=== PATIENT | female | born 2000 | race Caucasian/White ===

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

== ENCOUNTER → 2019-03-16 14:12 | Outpatient (CLI) | payer MEDICAID, SELFPAY ==
[2019-03-16 17:35] LABS: Alanine Aminotransferase 20 U/L (12-78); Albumin Level 3.3 gm/dL (3.4-5.0); Albumin/Globulin Ratio 0.9 (1.1-1.8); Alkaline Phosphatase 238 U/L (46-116); Anion Gap 14.4 mEq/L (5-15); Aspartate Amino Transferase 9 U/L (15-37); Bilirubin,Total 0.5 mg/dL (0.2-1.0); Blood Urea Nitrogen 6 mg/dL (7-18); Calcium 9.1 mg/dL (8.5-10.1); Carbon Dioxide 26 mmol/L (21.0-32.0); Chloride 104 mmol/L (98-107); Creatinine,Serum 0.61 mg/dL (0.55-1.02); Estimated Glomerular Filt Rate 126 ml/min (>60); Free T4 (Free Thyroxine) 1.02 ng/dl (0.78-1.34); GFR (African American) 153 ML/MIN (>60); Globulin 3.5 gm/dl (1.3-3.2); Glucose 86 mg/dL (74-106); Phosphorous 4.1 mg/dL (2.4-4.9); Potassium 4.4 mmoL/L (3.5-5.1); Sodium 140 mmol/L (136-145); Total Protein,Serum 6.8 gm/dL (6.4-8.2)
== END ==
PROVIDERS: Visit Provider Student in an Organized Health Care Education/Training Program
DX: Q78.1 Polyostotic fibrous dysplasia (principal)
CPT/HCPCS: 36415; 80053; 82787; 84100; 84439; 84443

== ENCOUNTER → 2019-04-05 09:51 | Outpatient (CLI) | payer MEDICAID, SELFPAY ==
[2019-04-05 11:25] LABS: Free T4 (Free Thyroxine) 0.76 ng/dl (0.78-1.34); Thyroid Stimulating Hormone 0.55 uIU/ml (0.516-4.13)
[2019-04-06 08:33] LABS: Triiodothyronine (T3) Total 181 ng/dL (71-180)
== END ==
PROVIDERS: Visit Provider Student in an Organized Health Care Education/Training Program
DX: E05.90 Thyrotoxicosis, unspecified without thyrotoxic crisis or storm (principal)
CPT/HCPCS: 36415; 84439; 84443; 84480

== ENCOUNTER 2019-05-19 18:34 | Emergency (ER) | payer MEDICAID, SELFPAY ==
[2019-05-19 18:51] VITALS: BP 137/83; PULSE 68; RESP 18; TEMP 36.8; O2SAT 98; BMI 25.9
--- NOTE | 2019-05-19 19:18 | HMH.EDUTC ---
[facility] [place] Clinical Impression: Migraine Qualifiers: Migraine type: unspecified Status migrainosus presence: without status migrainosus Intractability: not intractable Qualified Code(s): G43.909 - Migraine, unspecified, not intractable, without status migrainosus Disposition: Home, Self-Care Condition on Discharge: Good Instructions: DI for Chronic Pain -- Adult, Migraine -- Adult, Migraine Headaches (Alternative Therapy), Migraine Headaches (Alternative Therapy), DI for Migraine Additional Instructions: Go home lay down and sleep off remainder of headache Take Motrin as prescribed for pain Return if needed Straight to ER if any life threatening symptoms Referrals: Ministerio Poon MD [Primary Care Provider] - As needed Time of Disposition: 19:38 Medical Decision Making - Awais Inquiry Pt receiving controlled substance: No Awais was queried for this patient: No Vital Signs: 05/19/19 18:51 Temperature 98.2 F Temperature Source Oral Pulse Rate [Right Radial] 68 Respiratory Rate 18 Blood Pressure [Right Arm] 137/83 Blood Pressure Mean [Right Arm] 101 Blood Pressure Source [Right Arm] Automatic Cuff Blood Pressure Position [Right Arm] Sitting 02 Sat by Pulse Oximetry 98 Oxygen Delivery Method Room Air - Reevaluation(s) Time: 19:37 Reevaluation #1: Patient state that headache is better after taking medication [facility] [place] - General Stated complaint: reaction to meds given today?? Time Seen by Provider: 05/19/19 19:18 Mode of Arrival: Ambulatory Source of Information: Patient Limitations: No Limitations Description of Symptoms (Recalled from Triage Doc. by RN): C/O MIGRAINE THAT GOT WORSE AFTER TAKING HER SUMATRIPTAN. HEENT Symptoms (Recalled from RN notes): Yes (MIGRAINE) Resp Symptoms (Recalled from RN notes): No Skin Symptoms (Recalled from RN notes): No MS Symptoms (Recalled from RN notes): No Functional Status (Recalled from RN notes): N/A - History of Present Illness Provider Complaint: Patient state that she has a history of migraine headaches State that she seen her family doctor today and was started on medication State that she took her sumatriptan and it hasn't helped State that she took it before when she was younger and it would make her headaches worse. State that she came in to see if there was something she could take to help with her headache until her medication comes in tomorrow - Related Data Home Medications Medication Instructions Recorded Confirmed Pnv No.122/Iron/Folic Acid 1 each PO DAILY 09/16/18 09/16/18 [ Multi Tablet] Allergies Allergy/AdvReac Type Severity Reaction Status Date / Time No Known Allergies Allergy Verified 06/30/18 14:42 - Worker's Comp Is this a Worker's Comp case?: No H History - Hepatitis A Screen Drug use history?: No High risk sexual behaviors?: No History of sexually transmitted infection?: No Currently employed?: No Childcare worker?: No Do you have indoor plumbing?: Yes Do you have electricity?: Yes Attestation statement:: This patient has been screened for Hepatitis A risk factors. 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
--- NOTE | 2019-05-19 19:22 | ED_ITS ---
[facility] [place]ression: Migraine Qualifiers: Migraine type: unspecified Status migrainosus presence: without status migrainosus Intractability: not intractable Qualified Code(s): G43.909 - Migraine, unspecified, not intractable, without status migrainosus Disposition: Home, Self-Care Condition on Discharge: Good Instructions: DI for Chronic Pain -- Adult, Migraine -- Adult, Migraine Headaches (Alternative Therapy), Migraine Headaches (Alternative Therapy), DI for Migraine Additional Instructions: Go home lay down and sleep off remainder of headache Take Motrin as prescribed for pain Return if needed Straight to ER if any life threatening symptoms Referrals: Ministerio Poon MD [Primary Care Provider] - As needed Time of Disposition: 19:38 Medical Decision Making - Awais Inquiry Pt receiving controlled substance: No Awais was queried for this patient: No Vital Signs: 05/19/19 18:51 Temperature 98.2 F Temperature Source Oral Pulse Rate [Right Radial] 68 Respiratory Rate 18 Blood Pressure [Right Arm] 137/83 Blood Pressure Mean [Right Arm] 101 Blood Pressure Source [Right Arm] Automatic Cuff Blood Pressure Position [Right Arm] Sitting 02 Sat by Pulse Oximetry 98 Oxygen Delivery Method Room Air - Reevaluation(s) Time: 19:37 Reevaluation #1: Patient state that headache is better after taking medication [facility] [place] - General Stated complaint: reaction to meds given today?? Time Seen by Provider: 05/19/19 19:18 Mode of Arrival: Ambulatory Source of Information: Patient Limitations: No Limitations Description of Symptoms (Recalled from Triage Doc. by RN): C/O MIGRAINE THAT GOT WORSE AFTER TAKING HER SUMATRIPTAN. HEENT Symptoms (Recalled from RN notes): Yes (MIGRAINE) Resp Symptoms (Recalled from RN notes): No Skin Symptoms (Recalled from RN notes): No MS Symptoms (Recalled from RN notes): No Functional Status (Recalled from RN notes): N/A - History of Present Illness Provider Complaint: Patient state that she has a history of migraine headaches State that she seen her family doctor today and was started on medication State that she took her sumatriptan and it hasn't helped State that she took it before when she was younger and it would make her headaches worse. State that she came in to see if there was something she could take to help with her headache until her medication comes in tomorrow - Related Data Home Medications Medication Instructions Recorded Confirmed Pnv No.122/Iron/Folic Acid 1 each PO DAILY 09/16/18 09/16/18 [ Multi Tablet] Allergies Allergy/AdvReac Type Severity Reaction Status Date / Time No Known Allergies Allergy Verified 06/30/18 14:42 - Worker's Comp Is this a Worker's Comp case?: No H History - Hepatitis A Screen Drug use history?: No High risk sexual behaviors?: No History of sexually transmitted infection?: No Currently employed?: No Childcare worker?: No Do you have indoor plumbing?: Yes Do you have electricity?: Yes Attestation statement:: This patient has been screened for Hepatitis A risk factors. I have reviewed the patient's past medical history: Yes Medical History: Denies:: Cancer, Diabetes Mellitus Type 1, Diabetes Mellitus Type 2, Hyp
[2019-05-19 19:39] VITALS: BP 137/83; PULSE 68; RESP 18; TEMP 36.8; O2SAT 98
== END 2019-05-19 19:42 | disposition home or self-care (01) ==
PROVIDERS: Emergency Provider Nurse Practitioner; PCP Family Medicine
DX: G43.909 Migraine, unspecified, not intractable, without status migrainosus (principal)
CPT/HCPCS: 99201

== ENCOUNTER → 2019-07-22 12:30 | Outpatient (CLI) | payer MEDICAID, SELFPAY ==
[2019-07-22 12:55] LABS: Basophils % 0.2 % (0.1-2.0); Eosinophils # 0.1 K/mm3 (0.0-0.4); Eosinophils % 1.2 % (0.1-12.0); Hemoglobin 13.2 g/dL (12.2-16.2); Lymphocytes % 33.1 % (10-50); Mean Corpuscular HGB Conc 33.1 g/dL (31.8-35.4); Mean Corpuscular Hemoglobin 29.2 pg (27.0-31.2); Mean Corpuscular Volume 88.3 fl (81-99); Mean Platelet Volume 7.2 fl (7.4-10.4); Monocytes # 0.4 K/mm3 (0.1-1.0); Monocytes % 6.6 % (1.7-9.3); Neutrophils # 3.5 K/mm3 (1.8-7.8); Neutrophils % 58.9 % (37.0-80.0); Platelet Count 286 K/mm3 (142-424); Red Blood Count 4.53 M/mm3 (4.20-5.40); Red Cell Distribution Width 13.4 % (11.5-17.5)
[2019-07-22 13:46] LABS: Alanine Aminotransferase 23 U/L (12-78); Albumin Level 3.6 gm/dL (3.4-5.0); Albumin/Globulin Ratio 1.2 (1.1-1.8); Alkaline Phosphatase 180 U/L (46-116); Amylase 27 U/L (25-115); Anion Gap 9.5 mEq/L (5-15); Aspartate Amino Transferase 12 U/L (15-37); Bilirubin,Total 0.6 mg/dL (0.2-1.0); Blood Urea Nitrogen 10 mg/dL (7-18); Calcium 9.2 mg/dL (8.5-10.1); Carbon Dioxide 27 mmol/L (21.0-32.0); Chloride 105 mmol/L (98-107); Creatinine,Serum 0.54 mg/dL (0.55-1.02); Estimated Glomerular Filt Rate 144 ml/min (>60); GFR (African American) 174 ML/MIN (>60); Glucose 79 mg/dL (74-106); HCG,Quantitative 0 mIU/mL; Lipase 110 u/L (73-393); Potassium 4.5 mmoL/L (3.5-5.1); Sodium 137 mmol/L (136-145); Total Protein,Serum 6.6 gm/dL (6.4-8.2)
== END ==
PROVIDERS: Visit Provider Nurse Practitioner Family
DX: R10.0 Acute abdomen (principal); R11.2 Nausea with vomiting, unspecified; N92.6 Irregular menstruation, unspecified
CPT/HCPCS: 36415; 80053; 82150; 83690; 84702; 85025

== ENCOUNTER 2020-09-15 10:30 | Emergency (ER) | payer OTHER, SELFPAY ==
[2020-09-15 10:31] VITALS: BP 121/77; PULSE 83; RESP 19; TEMP 36.9; O2SAT 98; BMI 24.0
--- NOTE | 2020-09-15 10:57 | HMH.EDUTC ---
[facility] [place] Disposition Clinical Impression: UTI (urinary tract infection) Qualifiers: Urinary tract infection type: acute cystitis Hematuria presence: without hematuria Qualified Code(s): N30.00 - Acute cystitis without hematuria Disposition: Home, Self-Care Condition on Discharge: Good Instructions: DI for Urinary Tract Infection (UTI) Additional Instructions: Return to ER if severe pain, fever, vomiting, etc. Complete antibiotics as directed. Urine will be sent for culture. This should be available Friday/Friday. Follow up with CLINICAL OUTCOMES MANAGER. Prescriptions: Sulfamethoxazole/Trimethoprim [Bactrim DS tablet] 1 each PO BID 5 Days #10 tab Transmission Status: Pending to [id number] Referrals: PCP,No [Primary Care Provider] - Time of Disposition: 11:09 Medical Decision Making - Awais Inquiry Pt receiving controlled substance: No - Lab Data Lab results reviewed: Yes: I reviewed the patient's lab results. [facility] [place] HPI - General Stated complaint: Severe pain in ovaries Time Seen by Provider: 09/15/20 10:58 - History of Present Illness Provider Complaint: Right groin pain X several days. Has been getting progressively worse. Had tubal in May with surgery. Has only had one period since then. No fever. Some nausea, no vomiting. Has had burning with urination. No vaginal bleeding. No discharge. Denies concern for STD. Onset (ago): day(s) (3) Location: pelvis Relieving factors: none Exacerbating factors: none Treatments prior to arrival: none - Related Data Home Medications Medication Instructions Recorded Confirmed Medroxyprogesterone Acetate 150 mg IM ONCE 09/10/19 09/10/19 [Depo-Provera 150mg/mL Syringe] Previous Rx's Medication Instructions Recorded Sulfamethoxazole/Trimethoprim 1 each PO BID 5 Days #10 tab 09/15/20 [Bactrim DS tablet] Allergies Allergy/AdvReac Type Severity Reaction Status Date / Time No Known Allergies Allergy Verified 06/30/18 14:42 [facility] History - Hepatitis A Screen Attestation statement:: This patient has been screened for Hepatitis A risk factors. 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) Other Surgeries: Yes: No Previous Surgery Amputation: No Fractures: Yes (ANKLE,FINGERS,FOOT) - Social History Smoking Status: Never smoker Alcohol Intake: never Occupational Status: student ROS Obtained: Yes All systems reviewed & no additional complaints - Genitourinary Female Genitourinary: Reports dysuria, Denies flank pain, Reports pelvic pain, Reports urinary frequency, Denies vaginal discharge Physical Exam - General General appearance: alert, in no apparent distress - Head Head exam: atraumatic, normocephalic, normal inspection - Eye Eye exam: Present: normal appearance, PERRL, EOMI - ENT ENT exam: Present: normal exam, normal oropharynx, mucous membranes moist, TM's normal bilaterally, normal external ear exam - Neck Neck exam: Present: normal inspection, full ROM, trachea midline. Absent: meningismus, lymphadenopathy - Chest Chest inspection: Present: normal inspection, symmetric chest wall rise. Absent: tenderness - Respiratory Respiratory exam: Present: normal lung sounds bilaterally. Absent: respiratory distress - Cardiovascular Cardiovascular exam: Present: regular rate, normal rhythm. Absent: JVD - Abdominal Exam Abdominal exam: Present: soft, normal bowel sounds. Absent: distention, tenderness, guarding Abdominal tenderness: Present: RLQ (tenderness, but no guarding or rigidity), suprapubic - Extremities Exam Extremities exam: Present: normal inspection, full ROM, normal capillary refill. Absent: calf tenderness - Back Exam Back exam: Present: normal inspection. Absent: tenderness - Neurological Exam Neurological exam:
[2020-09-15 11:36] VITALS: BP 121/77; PULSE 83; RESP 19; TEMP 36.9; O2SAT 99
[2020-09-15 14:47] LABS: Color,Urine Yellow (Yellow)
[2020-09-15 14:48] LABS: Apearance,Urine Clear (Clear)
[2020-09-15 14:49] LABS: Bilirubin,Urine Negative (Negative); Blood, Urine Negative (Negative); Glucose,Urine (UA) Negative (Negative); Ketones,Urine Negative (Negative); Protein,Urine Negative (Negative); Specific Gravity, Urine 1.025 (1.005-1.030); UTC Leukocyte Esterase,Urine Trace (Negative); UTC Nitrate,Urine Negative (Negative); UTC Pregnancy Test, Urine Negative (Negative); Urobilinogen,Urine 1 EU/dl (0.2)
== END 2020-09-15 11:37 | disposition home or self-care (01) ==
PROVIDERS: Emergency Provider Physician Assistant
DX: N30.00 Acute cystitis without hematuria (principal)
CPT/HCPCS: 81003; 81025; 87086; 99201

== ENCOUNTER 2021-03-03 19:12 | Emergency (ER) | payer BC, SELFPAY ==
[2021-03-03 19:27] VITALS: BP 146/86; PULSE 78; RESP 20; TEMP 36.6; O2SAT 78; BMI 29.6
--- NOTE | 2021-03-03 19:34 | XR_ITS ---
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 There may be focal involvement of the 8th rib as well with a similar appearance of the 8th rib anteriorly. The clavicle AC joint humeral head and glenoid all appear normal. Similar findings of the left 1st and 2nd and 8th ribs were seen on the previous rib series 09/10/2019. 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 Parveen Hermosillo MD 03/04/2021 08:30 Dr. Parveen Hermosillo MD in [place] 03/04/2021 08:30
--- NOTE | 2021-03-03 19:46 | HMH.EDUTC ---
[facility] [place]ression: Shoulder pain, left Qualifiers: Chronicity: acute Qualified Code(s): M25.512 - Pain in left shoulder Disposition: Home, Self-Care Condition on Discharge: Good Instructions: DI for Shoulder Pain Additional Instructions: tylenol or motrin for pain follow up with pcp for more work up ice 20 min,remove and repeat every hour if worsen return or be seen in ed follow up with ortho Referrals: Ministerio Poon MD [Primary Care Provider] - Raji Kirby MD [Staff Physician] - Time of Disposition: 20:55 Medical Decision Making - Awais Inquiry Pt receiving controlled substance: No Vital Signs: 03/03/21 19:27 Temperature 97.9 F Temperature Source Oral Pulse Rate [Right] 78 Respiratory Rate 20 Blood Pressure [Right Arm] 146/86 H Blood Pressure Mean [Right Arm] 106 02 Sat by Pulse Oximetry 78 L Orders (Tests/Meds): ORDERS Category Date Time Status XR shoulder LT min 2V Stat Exams 03/03/21 19:34 [place] [facility] [place] - General Chief complaint: [facility] Stated complaint: LEFT SHOULDER PAIN Time Seen by Provider: 03/03/21 19:47 Mode of Arrival: Ambulatory Source of Information: Patient Limitations: No Limitations Description of Symptoms (Recalled from Triage Doc. by RN): L shoulder pain. pt was sitting a week ago and suddenly felt her L shoulder pop. its been painful every since. she states this happens frequently and she decided she should get it checked out. HEENT Symptoms (Recalled from RN notes): No Resp Symptoms (Recalled from RN notes): No Skin Symptoms (Recalled from RN notes): No MS Symptoms (Recalled from RN notes): Yes (L shoulder pain) Functional Status (Recalled from RN notes): na - History of Present Illness Provider Complaint: 20 yr old female presents for L shoulder pain. pt was sitting a week ago and suddenly felt her L shoulder pop. its been painful every since. she states this happens frequently and she decided she should get it checked out. limited rom - Related Data Home Medications Medication Instructions Recorded Confirmed Medroxyprogesterone Acetate 150 mg IM ONCE 09/10/19 09/10/19 [Depo-Provera 150mg/mL Syringe] Previous Rx's Medication Instructions Recorded Sulfamethoxazole/Trimethoprim 1 each PO BID 5 Days #10 tab 09/15/20 [Bactrim DS tablet] Allergies Allergy/AdvReac Type Severity Reaction Status Date / Time No Known Allergies Allergy Verified 06/30/18 14:42 - Worker's Comp Is this a Worker's Comp case?: No [facility] History - Hepatitis A Screen Drug use history?: No High risk sexual behaviors?: No History of sexually transmitted infection?: No Currently employed?: No Childcare worker?: No Do you have indoor plumbing?: Yes Do you have electricity?: Yes Attestation statement:: This patient has been screened for Hepatitis A risk factors. 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) Other Surgeries: Yes: No Previous Surgery Amputation: No Fractures: Yes (ANKLE,FINGERS,FOOT) - Social History Smoking Status: Never smoker Alcohol Intake: never Occupational Status: employed ROS Obtained: Yes Systems reviewed as appropriate & no additional complaints - Constitutional Constitutional: Reports system reviewed and no additional complaints, except as docu, Denies chills, Denies fever(s) - Eyes Eyes: Reports system reviewed and no additional complaints, except as docu, Denies blurry vision - ENT Ears, Nose, Mouth, and Throat: Reports system reviewed and no additional complaints, except as docu, Denies dizziness, Denies sore throat - Cardiovascular Cardiovascular: Reports system reviewed and no additional complaints, except as docu, Denies chest pain - Respiratory Respiratory: Reports system reviewed and no a
[2021-03-03 21:08] VITALS: BP 139/82; PULSE 84; RESP 19; TEMP 36.6
== END 2021-03-03 21:14 | disposition home or self-care (01) ==
PROVIDERS: Emergency Provider Nurse Practitioner Family; PCP Family Medicine
DX: M25.512 Pain in left shoulder (principal)
CPT/HCPCS: 73030; 99202; G0463

== ENCOUNTER 2021-03-13 21:24 | Emergency (ER) | payer BC, SELFPAY ==
[2021-03-13 22:31] VITALS: BP 145/85; PULSE 78; RESP 17; TEMP 36.7; O2SAT 100; BMI 26.6
[2021-03-13 22:48] LABS: Microscopic, Urine URINE MICROSCOPIC (MICROSCOPIC)
[2021-03-13 22:51] LABS: Appearance,Urine CLEAR (Clear); Bilirubin,Urine Negative (Negative); Blood, Urine Negative (Negative); Color,Urine YELLOW (Yellow); Glucose,Urine (UA) Negative (Negative); Ketones,Urine Negative (Negative); Leukocyte Esterase,Urine Negative (Negative); Nitrate,Urine Negative (Negative); PH,Urine 6.5 (5.0-8.5); Protein,Urine Negative (Negative); Specific Gravity, Urine 1.025 (1.005-1.030); Urobilinogen,Urine 0.2 EU/dl (0.2)
[2021-03-13 22:53] LABS: Urine Pregnancy, HCG Qual. Negative (Negative)
[2021-03-13 23:03] LABS: Basophils % 0.5 % (0.1-2.0); Eosinophils # 0.2 K/mm3 (0.0-0.4); Eosinophils % 1.8 % (0.1-12.0); Hematocrit 38.1 % (37.0-47.0); Hemoglobin 13.1 g/dL (12.2-16.2); Lymphocytes # 3.1 K/mm3 (0.7-4.5); Lymphocytes % 33.6 % (10-50); Mean Corpuscular HGB Conc 34.4 g/dL (31.8-35.4); Mean Corpuscular Hemoglobin 29.7 pg (27.0-31.2); Mean Corpuscular Volume 86.4 fl (81-99); Mean Platelet Volume 7.5 fl (7.4-10.4); Monocytes # 0.4 K/mm3 (0.1-1.0); Monocytes % 4.6 % (1.7-9.3); Neutrophils # 5.4 K/mm3 (1.8-7.8); Neutrophils % 59.5 % (37.0-80.0); Platelet Count 300 K/mm3 (142-424); Red Blood Count 4.41 M/mm3 (4.20-5.40); White Blood Count 9.1 K/mm3 (4.8-10.8)
[2021-03-13 23:05] LABS: Chloride 102 mmol/L (98-107); Potassium 4.1 mmoL/L (3.5-5.1); Sodium 136 mmol/L (136-145)
[2021-03-13 23:05] LABS: Amorphous Sediment,Urine 1+ /lpf; Bacteria,Urine 1+ /lpf; Mucus,Urine 1+ /lpf
[2021-03-13 23:07] LABS: Amylase 35 U/L (30-110); Blood Urea Nitrogen 12 mg/dl (7-17); Creatinine Clearance Estimated 165 mL/min (50-200); Estimated Glomerular Filt Rate 126 ml/min (>60); GFR (African American) 153 ML/MIN (>60)
[2021-03-13 23:08] LABS: Alanine Aminotransferase 12 U/L (12-78); Albumin Level 4.1 g/dl (3.5-5.0); Alkaline Phosphatase 169 U/L (38-126); Anion Gap 9.1 mEq/L (5-15); Aspartate Amino Transferase 21 U/L (14-36); Bilirubin,Indirect 0.4 mg/dL (0.0-0.9); Bilirubin,Total 0.4 mg/dl (0.2-1.3); Bilirubin,Unconjugated 0.4 mg/dL (0.0-1.1); Calcium 9.4 mg/dl (8.4-10.2); Carbon Dioxide 29 mmol/L (22.0-30.0); Glucose 94 mg/dl (74-100); Lipase 55 U/L (23-300); Total Protein,Serum 7.1 g/dl (6.3-8.2)
--- NOTE | 2021-03-13 23:15 | HMH.EDGENADL ---
ED Disposition Clinical Impression: Left lower quadrant pain Disposition: Home, Self-Care Condition on Discharge: Good Instructions: DI for Acute Abdominal Pain Additional Instructions: Additional instructions for ABDOMINAL PAIN: See your physician as soon as possible for further evaluation. Return immediately if worsening abdominal pain, vomiting, shortness of breath, fever, vomiting of blood or abdominal distention. Referrals: Ministerio Poon MD [Primary Care Provider] - - Critical Care Critical Care Time: No Attestation: On 03/13/21, the high probability of a clinically significant, sudden or life threatening deterioration of the following system(s) required my full and direct attention, intervention and personal management. The time I documented below is in addition to time spent performing reported procedures but includes the following listed in this critical care notation. Medical Decision Making - Awais Inquiry Pt receiving controlled substance: No Vital Signs: 03/13/21 22:31 03/14/21 00:20 Temperature 98.1 F 98.2 F Temperature Source Oral Oral Pulse Rate 73 Pulse Rate [Right Brachial] 78 Respiratory Rate 17 17 Blood Pressure 113/75 Blood Pressure [Right Arm] 145/85 H Blood Pressure Mean [Right Arm] 105 Blood Pressure Source Automatic Cuff Blood Pressure Source [Right Arm] Automatic Cuff Blood Pressure Position Sitting Blood Pressure Position [Right Arm] Sitting 02 Sat by Pulse Oximetry 100 Oxygen Delivery Method Room Air Room Air - Lab Data Lab Results 03/13/21 22:30: Urine Color Yellow, Urine Appearance Clear, Urine pH 6.5, Ur Specific [place] 1.025, Urine Protein Negative, Urine Glucose (UA) Negative, Urine Ketones Negative, Urine Blood Negative, Urine Nitrate Negative, Urine Bilirubin Negative, Urine Urobilinogen 0.2, Ur Leukocyte Esterase Negative, Urine WBC 3-5, Ur Squamous Epith Cells 3-5, Amorphous Sediment 1+, Urine Bacteria 1+, Urine Mucus 1+ 03/13/21 22:30: Urine HCG, Qual Negative 03/13/21 22:45: WBC 9.1, RBC 4.41, Hgb 13.1, Hct 38.1, MCV 86.4, MCH 29.7, MCHC 34.4, RDW 13.0, Plt Count 300, MPV 7.5, Neut % (Auto) 59.5, Lymph % (Auto) 33.6, [place] % (Auto) 4.6, Eos % (Auto) 1.8, Baso % (Auto) 0.5, Neut # (Auto) 5.4, Lymph # (Auto) 3.1, [place] # (Auto) 0.4, Eos # (Auto) 0.2, Baso # (Auto) 0.0 03/13/21 22:45: Sodium 136, Potassium 4.1, Chloride 102, Carbon Dioxide 29, Anion Gap 9.1, BUN 12, Creatinine 0.60, Estimated Creat Clear 165, Estimated GFR 126, Est GFR ( Amer) 153, Glucose 94, Calcium 9.4, Total Bilirubin 0.4, Direct Bilirubin 0.0, Conjugated Bilirubin 0.0, Indirect Bilirubin 0.4, Unconjugated Bilirubin 0.4, AST 21, ALT 12, Alkaline Phosphatase 169 H, Total Protein 7.1, Albumin 4.1, Amylase 35, Lipase 55 03/13/21 22:45: Serum HCG, Qual Negative Result diagrams: 03/13/21 22:45 03/13/21 22:45 Orders (Tests/Meds): ED MEDICATIONS Discontinued Medications Generic Name Dose Route Start Last Admin Trade Name Jovita PRN Reason Stop Dose Admin Butorphanol Tartrate 1 mg 03/13/21 23:32 03/13/21 23:53 Butorphanol Tartrate 1 Mg/Ml Vial IV 03/13/21 23:33 Not Given ONCE ONE Medical Decision Narrative: Urine test negative. She says that Pee tests do not show her pregnancies and therefore she wants a serum test. Discussed further work-up for left lower quadrant pain as this does not appear to be tubal , I do not expect the serum test to show a different result. She says she does not want any other testing done other than what has already been performed. She does not want a CT scan. She just wanted to make sure she did not have a tubal by getting a serum test. General Adult HPI - General Chief complaint: Abdominal Pain Stated complaint: Pain on left side, nausea Time Seen by Provider: 03/13/21 23:15 Mode of Arrival: Family Vehicle Limitations: No Limitations Description of Symptoms (Recalle
[2021-03-13 23:57] LABS: HCG Qualitative, Serum Negative (Negative)
[2021-03-14 00:20] VITALS: BP 113/75; PULSE 73; RESP 17; TEMP 36.8; O2SAT 98
== END 2021-03-14 00:23 | disposition home or self-care (01) ==
PROVIDERS: Emergency Provider Emergency Medicine; PCP Family Medicine
DX: R10.32 Left lower quadrant pain (principal); Z32.02 Encounter for pregnancy test, result negative; Q78.1 Polyostotic fibrous dysplasia
CPT/HCPCS: 80048; 80076; 81001; 81025; 82150; 83690; 84703; 85025; 99282

== ENCOUNTER 2021-05-14 21:18 | Emergency (ER) | payer BC, SELFPAY ==
[2021-05-14 21:34] LABS: Microscopic, Urine URINE MICROSCOPIC (MICROSCOPIC)
[2021-05-14 21:35] VITALS: BP 116/73; PULSE 91; RESP 16; TEMP 36.9; O2SAT 98; BMI 27.4
[2021-05-14 21:36] LABS: Coronavirus 19, PCR Not Detected (NotDetected); Influenza A, PCR Not Detected (NotDetected); Influenza B, PCR Not Detected (NotDetected)
[2021-05-14 21:45] LABS: Appearance,Urine CLEAR (Clear); Bilirubin,Urine Negative (Negative); Blood, Urine 3+ (Negative); Color,Urine YELLOW (Yellow); Glucose,Urine (UA) Negative (Negative); Ketones,Urine Negative (Negative); Leukocyte Esterase,Urine TRACE (Negative); Nitrate,Urine Negative (Negative); PH,Urine 6.5 (5.0-8.5); Protein,Urine 2+ (Negative); Specific Gravity, Urine >= 1.030 (1.005-1.030)
[2021-05-14 21:59] LABS: Basophils % 0.3 % (0.1-2.0); Eosinophils # 0.2 K/mm3 (0.0-0.4); Eosinophils % 3.4 % (0.1-12.0); Hematocrit 36.4 % (37.0-47.0); Hemoglobin 12.9 g/dL (12.2-16.2); Lymphocytes # 2.5 K/mm3 (0.7-4.5); Lymphocytes % 34.9 % (10-50); Mean Corpuscular HGB Conc 35.4 g/dL (31.8-35.4); Mean Corpuscular Hemoglobin 30.7 pg (27.0-31.2); Mean Corpuscular Volume 86.8 fl (81-99); Mean Platelet Volume 7.5 fl (7.4-10.4); Monocytes # 0.2 K/mm3 (0.1-1.0); Monocytes % 3.1 % (1.7-9.3); Neutrophils # 4.1 K/mm3 (1.8-7.8); Neutrophils % 58.2 % (37.0-80.0); Platelet Count 267 K/mm3 (142-424); Red Cell Distribution Width 13.1 % (11.5-17.5)
--- NOTE | 2021-05-14 22:02 | HMH.EDNVD ---
ED Disposition Clinical Impression: UTI (urinary tract infection) Qualifiers: Urinary tract infection type: site unspecified Hematuria presence: without hematuria Qualified Code(s): N39.0 - Urinary tract infection, site not specified Disposition: Home, Self-Care Condition on Discharge: Good Instructions: DI for Acute Abdominal Pain Additional Instructions: fluids and call pcp for urine culture results Prescriptions: levoFLOXacin [Levaquin 500mg tab] 500 mg PO DAILY #7 tab Transmission Status: Pending to [id number] ondansetron HCL [Zofran 4mg Tab] 4 mg PO TID #15 tab Transmission Status: Pending to [id number] Referrals: Ministerio Poon MD [Primary Care Provider] - - Critical Care Critical Care Time: No Attestation: On 05/14/21, the high probability of a clinically significant, sudden or life threatening deterioration of the following system(s) required my full and direct attention, intervention and personal management. The time I documented below is in addition to time spent performing reported procedures but includes the following listed in this critical care notation. Medical Decision Making - Medical Records Medical records reviewed: Yes: I reviewed the patient's medical records. - Awais Inquiry Pt receiving controlled substance: No Vital Signs: 05/14/21 21:35 Temperature 98.5 F Temperature Source Oral Pulse Rate [Right] 91 H Respiratory Rate 16 Blood Pressure [Right Arm] 116/73 Blood Pressure Mean [Right Arm] 87 Blood Pressure Source [Right Arm] Automatic Cuff Blood Pressure Position [Right Arm] Sitting 02 Sat by Pulse Oximetry 98 Oxygen Delivery Method Room Air - Lab Data Lab results reviewed: Yes: I reviewed the patient's lab results. Lab Results 05/14/21 21:23: SARS-CoV-2 (PCR) Not detected, Influenza A Untype (PCR) Not detected, Influenza Type B (PCR) Not detected 05/14/21 21:26: Urine Color Yellow, Urine Appearance Clear, Urine pH 6.5, Ur Specific [place] >= 1.030, Urine Protein 2+, Urine Glucose (UA) Negative, Urine Ketones Negative, Urine Blood 3+, Urine Nitrate Negative, Urine Bilirubin Negative, Urine Urobilinogen 1.0, Ur Leukocyte Esterase Trace, Urine RBC Tntc, Urine WBC Tntc, Ur Squamous Epith Cells Tntc, Urine Bacteria 3+ 05/14/21 21:48: WBC 7.0, RBC 4.20, Hgb 12.9, Hct 36.4 L, MCV 86.8, MCH 30.7, MCHC 35.4, RDW 13.1, Plt Count 267, MPV 7.5, Neut % (Auto) 58.2, Lymph % (Auto) 34.9, [place] % (Auto) 3.1, Eos % (Auto) 3.4, Baso % (Auto) 0.3, Neut # (Auto) 4.1, Lymph # (Auto) 2.5, [place] # (Auto) 0.2, Eos # (Auto) 0.2, Baso # (Auto) 0.0 05/14/21 21:48: Sodium 138, Potassium 3.7, Chloride 107, Carbon Dioxide 27, Anion Gap 7.7, BUN 11, Creatinine 0.50 L, Estimated Creat Clear 204, Estimated GFR 156, Est GFR ( Amer) 188, Glucose 114 H, Calcium 8.8, Total Bilirubin 0.4, AST 19, ALT 13, Alkaline Phosphatase 166 H, Total Protein 6.6, Albumin 3.9, Globulin 2.7, Albumin/Globulin Ratio 1.4, Amylase 43, Lipase 52 Result diagrams: 05/14/21 21:48 05/14/21 21:48 Orders (Tests/Meds): ED MEDICATIONS Generic Name Dose Route Start Last Admin Trade Name Freq PRN Reason Stop Dose Admin Sodium Chloride 1,000 mls @ 999 mls/hr 05/14/21 21:45 05/14/21 22:00 Sod Chlor 0.9% 1000ml Bag IV 05/14/21 22:45 999 mls/hr .Q1H1M GRACE Administration Sodium Chloride 8 ml 05/14/21 21:44 Sodium Chloride 0.9% 10ml Vial IV 06/13/21 21:43 NEEDED PRN dilute pepcid Discontinued Medications Generic Name Dose Route Start Last Admin Trade Name Freq PRN Reason Stop Dose Admin Famotidine 20 mg 05/14/21 21:44 05/14/21 22:00 Famotidine 20mg/2ml Vial IV 05/14/21 21:45 20 mg ONCE ONE Administration Ketorolac Tromethamine 30 mg 05/14/21 21:44 05/14/21 22:00 Ketorolac 30mg/Ml Vial IV 05/14/21 21:45 30 mg ONCE ONE Administration Metoclopramide HCl 10 mg 05/14/21 21:44 05/14/21 22:00 Metoclopramide Hcl 10mg/2ml Vial IVP 05/14/21 21:45 10 m
[2021-05-14 22:05] LABS: RBC,Urine TNTC #/hpf (0-3); WBC,Urine TNTC #/hpf (0-3)
[2021-05-14 22:06] LABS: Bacteria,Urine 3+ /lpf; Squamous Epithelial Cell,Urine TNTC #/hpf (0-5)
[2021-05-14 22:12] LABS: Alanine Aminotransferase 13 U/L (12-78); Albumin Level 3.9 g/dl (3.5-5.0); Albumin/Globulin Ratio 1.4 (1.1-1.8); Alkaline Phosphatase 166 U/L (38-126); Amylase 43 U/L (30-110); Anion Gap 7.7 mEq/L (5-15); Aspartate Amino Transferase 19 U/L (14-36); Bilirubin,Total 0.4 mg/dl (0.2-1.3); Blood Urea Nitrogen 11 mg/dl (7-17); Calcium 8.8 mg/dl (8.4-10.2); Carbon Dioxide 27 mmol/L (22.0-30.0); Chloride 107 mmol/L (98-107); Creatinine Clearance Estimated 204 mL/min (50-200); Estimated Glomerular Filt Rate 156 ml/min (>60); GFR (African American) 188 ML/MIN (>60); Globulin 2.7 g/dL (1.3-3.2); Glucose 114 mg/dl (74-100); Lipase 52 U/L (23-300); Potassium 3.7 mmoL/L (3.5-5.1); Sodium 138 mmol/L (136-145); Total Protein,Serum 6.6 g/dl (6.3-8.2)
[2021-05-14 22:17] LABS: C-Reactive Protein 0.6 mg/L (0-4)
[2021-05-14 22:26] VITALS: BP 110/71; PULSE 86; RESP 16; TEMP 36.9; O2SAT 99
[2021-05-14 22:58] LABS: Erythrocyte Sedimentation Rate 18 mm/hr (0-20)
[2021-05-14 22:59] LABS: Procalcitonin < 0.030 ng/mL (0.0-2.0)
== END 2021-05-14 22:29 | disposition home or self-care (01) ==
PROVIDERS: Emergency Provider Emergency Medicine; PCP Family Medicine
DX: N30.00 Acute cystitis without hematuria (principal)
CPT/HCPCS: 80053; 81001; 82150; 83690; 84145; 85025; 85651; 86140; 87086; 96365; 96367; 96375; 99283; J2405; U0003

== ENCOUNTER 2021-08-21 18:11 | Emergency (ER) | payer BC, SELFPAY ==
[2021-08-21 18:13] VITALS: BP 143/95; PULSE 82; RESP 18; TEMP 36.6; O2SAT 98
--- NOTE | 2021-08-21 18:36 | US_ITS ---
PROCEDURE INFORMATION: Exam: US Pelvis, Transvaginal Exam date and time: 08/21/2021 6:36 PM Age: 21 years old Clinical indication: Menstruation abnormalities; Excessive menstruation; With irregular cycle; Prior surgery; Surgery date: 1-6 months; Surgery type: Right tubal ligation; Patient HX: Left sided pelvic pain and heavy bleeding x 1 month; Additional info: L tubal preg 10 jul 2021 TECHNIQUE: Imaging protocol: Real-time transvaginal pelvic ultrasound with image documentation. Transvaginal imaging was used for better evaluation of the endometrium, adnexa, and/or cervix. COMPARISON: No relevant prior studies available. FINDINGS: Uterus/cervix: Uterus is normal. Endometrial stripe is normal. Right adnexa: Normal. No mass. Normal ovarian blood flow. Left adnexa: Normal. No mass. Normal ovarian blood flow. Intraperitoneal space: No free fluid. IMPRESSION: No acute findings.
--- NOTE | 2021-08-21 18:39 | HMH.EDGENADL ---
ED Disposition Clinical Impression: Vaginal bleeding Disposition: Home, Self-Care Condition on Discharge: Good Referrals: Ministerio Poon MD [Primary Care Provider] - 3 days Time of Disposition: 19:38 - Critical Care Critical Care Time: No Attestation: On 08/21/21, the high probability of a clinically significant, sudden or life threatening deterioration of the following system(s) required my full and direct attention, intervention and personal management. The time I documented below is in addition to time spent performing reported procedures but includes the following listed in this critical care notation. Medical Decision Making - Medical Records Medical records reviewed: Yes: I reviewed the patient's medical records. - Awais Inquiry Pt receiving controlled substance: No Vital Signs: 08/21/21 18:13 Temperature 97.8 F Temperature Source Oral Pulse Rate [Right] 82 Respiratory Rate 18 Blood Pressure [Right Arm] 143/95 H Blood Pressure Mean [Right Arm] 111 02 Sat by Pulse Oximetry 98 - Lab Data Lab results reviewed: Yes: I reviewed the patient's lab results. Lab Results 08/21/21 19:17: WBC 7.9, RBC 4.48, Hgb 13.8, Hct 41.0, MCV 91.7, MCH 30.8, MCHC 33.6, RDW 13.2, Plt Count 301, MPV 8.0, Neut % (Auto) 58.9, Lymph % (Auto) 32.5, [place] % (Auto) 4.0, Eos % (Auto) 3.8, Baso % (Auto) 0.8, Neut # (Auto) 4.7, Lymph # (Auto) 2.6, [place] # (Auto) 0.3, Eos # (Auto) 0.3, Baso # (Auto) 0.1 08/21/21 19:17: Sodium 140, Potassium 4.0, Chloride 105, Carbon Dioxide 25, Anion Gap 14.0, BUN 12, Creatinine 0.60, Estimated Creat Clear 184, Estimated GFR 125, Est GFR ( Amer) 151, Glucose 101 H, Calcium 9.2 Result diagrams: 08/21/21 19:17 08/21/21 19:17 Orders (Tests/Meds): ORDERS Category Date Time Status US transvaginal Stat Exams 08/21/21 18:36 Taken Basic Metabolic Panel Stat Lab 08/21/21 19:17 Results HCG,Quantitative Stat Lab 08/21/21 19:17 Results - US Data US Images: Pelvis Preliminary Findings: Normal/NAD Findings Narrative: Discussed result with collision repair technician. She states good flow to the ovary, no abnormal findings with the fallopian tube. No significant vaginal bleeding appreciated during the exam. Medical Decision Narrative: 21yo F evaluated for continual vaginal bleeding after tubal treatment in [place] on 10 July 2021. Patient in no acute distress on initial evaluation. Physical exam is remarkable for conjunctival pallor but otherwise no acute findings. CBC, BMP, ultrasound have been ordered. Patient's ultrasound shows no sign of ectopic , tubular swelling or rupture. Ovaries normal. Patient's H/H are well within normal limits. There is no acute finding on her blood work at this time. She is appropriate and stable for discharge home. She has scheduled follow-up with gynecology this week. General Adult HPI - General Stated complaint: Tub Preg 07/10 Bleeding Time Seen by Provider: 08/21/21 18:30 Mode of Arrival: Ambulatory Source of Information: Patient - History of Present Illness HPI narrative: 21yo F reports the emergency department for vaginal bleeding. Patient reports she was evaluated in [place] and told she had a tubal on 10 July 2021. She reports giving shot for chemical management of her tubal . She was followed daily and told that she was improving and she was no longer in danger of tubal rupture. She reports heavy vaginal bleeding daily since that time. She reports she soaks a pad in approximately an hour. She states today she became lightheaded and dizzy and thought this was abnormal so she decided to seek further care. She reports she is pending APARTMENT MAINTENANCE follow-up on Friday but did not think she could wait any longer. - Related Data Home Medications Medication Instructions Recorded Confirmed Medroxyprogesterone Acetate 150 mg IM ONCE 09/10/19 09/10/19 [Depo-Provera 150mg/mL Syringe] Previous Rx's
[2021-08-21 19:26] LABS: Basophils # 0.1 K/mm3 (0-0.2); Basophils % 0.8 % (0.1-2.0); Eosinophils # 0.3 K/mm3 (0.0-0.4); Eosinophils % 3.8 % (0.1-12.0); Hemoglobin 13.8 g/dL (12.2-16.2); Lymphocytes # 2.6 K/mm3 (0.7-4.5); Lymphocytes % 32.5 % (10-50); Mean Corpuscular HGB Conc 33.6 g/dL (31.8-35.4); Mean Corpuscular Hemoglobin 30.8 pg (27.0-31.2); Mean Corpuscular Volume 91.7 fl (81-99); Monocytes # 0.3 K/mm3 (0.1-1.0); Neutrophils # 4.7 K/mm3 (1.8-7.8); Neutrophils % 58.9 % (37.0-80.0); Platelet Count 301 K/mm3 (142-424); Red Blood Count 4.48 M/mm3 (4.20-5.40); Red Cell Distribution Width 13.2 % (11.5-17.5); White Blood Count 7.9 K/mm3 (4.8-10.8)
[2021-08-21 19:28] LABS: Chloride 105 mmol/L (98-107); Sodium 140 mmol/L (136-145)
[2021-08-21 19:31] LABS: Blood Urea Nitrogen 12 mg/dl (7-17); Carbon Dioxide 25 mmol/L (22.0-30.0); Creatinine Clearance Estimated 184 mL/min (50-200); Estimated Glomerular Filt Rate 125 ml/min (>60); GFR (African American) 151 ML/MIN (>60)
[2021-08-21 19:32] LABS: Calcium 9.2 mg/dl (8.4-10.2); Glucose 101 mg/dl (74-100)
[2021-08-21 19:48] LABS: HCG,Quantitative 89 mIU/ml (0-5.42)
[2021-08-21 19:50] VITALS: BP 135/71; PULSE 80; RESP 18; TEMP 36.6; O2SAT 98
== END 2021-08-21 19:51 | disposition home or self-care (01) ==
PROVIDERS: Emergency Provider Family Medicine; PCP Family Medicine
DX: N93.8 Other specified abnormal uterine and vaginal bleeding (principal)
CPT/HCPCS: 76830; 80048; 84702; 85025; 99283

== ENCOUNTER 2022-03-05 02:30 | Emergency (ER) | payer BC, SELFPAY ==
[2022-03-05 02:31] VITALS: BP 142/94; PULSE 77; RESP 16; TEMP 36.7; O2SAT 99; BMI 30.9
--- NOTE | 2022-03-05 02:59 | PC.NURSE ---
US paged at this time
--- NOTE | 2022-03-05 03:00 | US_ITS ---
PROCEDURE INFORMATION: Exam: US , Transvaginal Exam date and time: 03/05/2022 3:33 AM Age: 21 years old Clinical indication: Gestational age or lmp: 01/01/22; Prior surgery; Surgery type: Right tube removed; Patient HX: Llq pain, bleeding x2 days, pos home preg test. Neg urine at er; Additional info: Vaginal bleeding TECHNIQUE: Imaging protocol: Real-time transvaginal obstetrical ultrasound of the maternal pelvis with image documentation. Transvaginal imaging was used for better evaluation of the fetus, adnexa, and/or cervix. COMPARISON: US TRANSVAGINAL 08/21/2021 6:49 PM FINDINGS: Gestation: No intrauterine gestational sac. MATERNAL: Uterus: Endometrium: 0.1 cm in thickness. Cervix: Closed cervix. Right ovary: Normal. No adnexal mass. Left ovary: 3.7 x 2.4 x 2.2 cm cyst. No adnexal mass. Intraperitoneal space: No significant free fluid. IMPRESSION: No intrauterine gestation. DDX: Early IUP, missed , ectopic .
[2022-03-05 03:05] LABS: Basophils % 0.4 % (0.1-2.0); Eosinophils # 0.2 K/mm3 (0.0-0.4); Eosinophils % 2.3 % (0.1-12.0); Hemoglobin 14.3 g/dL (12.2-16.2); Lymphocytes # 3.2 K/mm3 (0.7-4.5); Lymphocytes % 37.8 % (10-50); Mean Corpuscular HGB Conc 33.3 g/dL (31.8-35.4); Mean Corpuscular Hemoglobin 31.3 pg (27.0-31.2); Mean Corpuscular Volume 93.9 fl (81-99); Mean Platelet Volume 8.1 fl (7.4-10.4); Monocytes # 0.4 K/mm3 (0.1-1.0); Monocytes % 4.7 % (1.7-9.3); Neutrophils # 4.6 K/mm3 (1.8-7.8); Neutrophils % 54.8 % (37.0-80.0); Platelet Count 288 K/mm3 (142-424); Red Blood Count 4.58 M/mm3 (4.20-5.40); Red Cell Distribution Width 13.8 % (11.5-17.5); White Blood Count 8.4 K/mm3 (4.8-10.8)
[2022-03-05 03:09] LABS: Microscopic, Urine URINE MICROSCOPIC (MICROSCOPIC)
[2022-03-05 03:10] LABS: Appearance,Urine CLEAR (Clear); Bilirubin,Urine Negative (Negative); Blood, Urine 2+ (Negative); Color,Urine YELLOW (Yellow); Glucose,Urine (UA) Negative (Negative); Ketones,Urine Negative (Negative); Leukocyte Esterase,Urine Negative (Negative); Nitrate,Urine Negative (Negative); PH,Urine 5.5 (5.0-8.5); Protein,Urine Negative (Negative); Specific Gravity, Urine >= 1.030 (1.005-1.030); Urobilinogen,Urine 0.2 EU/dl (0.2)
[2022-03-05 03:11] LABS: Alanine Aminotransferase 16 U/L (12-78); Albumin Level 4.5 g/dl (3.5-5.0); Albumin/Globulin Ratio 1.6 (1.1-1.8); Alkaline Phosphatase 188 U/L (38-126); Anion Gap 8.9 mEq/L (5-15); Aspartate Amino Transferase 21 U/L (14-36); Bilirubin,Total 0.7 mg/dl (0.2-1.3); Blood Urea Nitrogen 11 mg/dl (7-17); Calcium 9.3 mg/dl (8.4-10.2); Carbon Dioxide 28 mmol/L (22.0-30.0); Chloride 104 mmol/L (98-107); Creatinine Clearance Estimated 227 mL/min (50-200); Estimated Glomerular Filt Rate 154 ml/min (>60); GFR (African American) 187 ML/MIN (>60); Globulin 2.8 g/dL (1.3-3.2); Glucose 101 mg/dl (74-100); Lipase 46 U/L (23-300); Potassium 3.9 mmoL/L (3.5-5.1); Sodium 137 mmol/L (136-145); Total Protein,Serum 7.3 g/dl (6.3-8.2)
[2022-03-05 03:15] LABS: Urine Pregnancy, HCG Qual. Negative (Negative)
[2022-03-05 03:17] LABS: C-Reactive Protein 0.5 mg/L (0-4)
[2022-03-05 03:29] LABS: HCG Qualitative, Serum Negative (Negative)
[2022-03-05 03:31] LABS: Erythrocyte Sedimentation Rate 22 mm/hr (0-20); HCG,Quantitative < 2 mIU/ml (0-5.42)
[2022-03-05 03:34] LABS: Bacteria,Urine Trace /lpf; Mucus,Urine 1+ /lpf
--- NOTE | 2022-03-05 03:34 | PC.NURSE ---
Pt to US at this time
[2022-03-05 04:00] VITALS: BP 123/77; PULSE 62; O2SAT 97
[2022-03-05 04:30] VITALS: BP 130/82; PULSE 67; O2SAT 100
[2022-03-05 05:00] VITALS: BP 122/70; PULSE 61; RESP 16; O2SAT 100
--- NOTE | 2022-03-05 05:08 | HMH.EDNVD ---
ED Disposition Clinical Impression: Pelvic pain Ovarian cyst Qualifiers: Laterality: left Qualified Code(s): N83.202 - Unspecified ovarian cyst, left side Disposition: Home, Self-Care Condition on Discharge: Good Instructions: DI for Ovarian Cyst Additional Instructions: call gluing machine operator electronic this am Referrals: Provider,Referral, [Primary Care Provider] - - Critical Care Critical Care Time: No Attestation: On 03/05/22, the high probability of a clinically significant, sudden or life threatening deterioration of the following system(s) required my full and direct attention, intervention and personal management. The time I documented below is in addition to time spent performing reported procedures but includes the following listed in this critical care notation. Medical Decision Making - Medical Records Medical records reviewed: Yes: I reviewed the patient's medical records. - Awais Inquiry Pt receiving controlled substance: No Vital Signs: 03/05/22 02:31 03/05/22 04:00 03/05/22 04:30 Temperature 98.1 F Temperature Source Oral Pulse Rate 62 67 Pulse Rate [Right Radial] 77 Respiratory Rate 16 Blood Pressure 123/77 130/82 Blood Pressure [Right Arm] 142/94 H Blood Pressure Mean [Right Arm] 110 Blood Pressure Source [Right Arm] Automatic Cuff Blood Pressure Position [Right Arm] Sitting 02 Sat by Pulse Oximetry 99 97 100 Oxygen Delivery Method Room Air Room Air - Lab Data Lab results reviewed: Yes: I reviewed the patient's lab results. Lab Results 03/05/22 02:45: Urine Color Yellow, Urine Appearance Clear, Urine pH 5.5, Ur Specific [place] >= 1.030, Urine Protein Negative, Urine Glucose (UA) Negative, Urine Ketones Negative, Urine Blood 2+, Urine Nitrate Negative, Urine Bilirubin Negative, Urine Urobilinogen 0.2, Ur Leukocyte Esterase Negative, Urine RBC None, Urine WBC None, Ur Squamous Epith Cells 5-10, Urine Bacteria Trace, Urine Mucus 1+ 03/05/22 02:45: Urine HCG, Qual Negative 03/05/22 02:55: WBC 8.4, RBC 4.58, Hgb 14.3, Hct 43.0, MCV 93.9, MCH 31.3 H, MCHC 33.3, RDW 13.8, Plt Count 288, MPV 8.1, Neut % (Auto) 54.8, Lymph % (Auto) 37.8, [place] % (Auto) 4.7, Eos % (Auto) 2.3, Baso % (Auto) 0.4, Neut # (Auto) 4.6, Lymph # (Auto) 3.2, [place] # (Auto) 0.4, Eos # (Auto) 0.2, Baso # (Auto) 0.0, ESR 22 H 03/05/22 02:55: Sodium 137, Potassium 3.9, Chloride 104, Carbon Dioxide 28, Anion Gap 8.9, BUN 11, Creatinine 0.50 L, Estimated Creat Clear 227, Estimated GFR 154, Est GFR ( Amer) 187, Glucose 101 H, Calcium 9.3, Total Bilirubin 0.7, AST 21, ALT 16, Alkaline Phosphatase 188 H, C-Reactive Protein 0.5, Total Protein 7.3, Albumin 4.5, Globulin 2.8, Albumin/Globulin Ratio 1.6, Lipase 46, HCG, Quant < 2 03/05/22 02:55: Serum HCG, Qual Negative Result diagrams: 03/05/22 02:55 03/05/22 02:55 Orders (Tests/Meds): ED MEDICATIONS Generic Name Dose Route Start Last Admin Trade Name Freq PRN Reason Stop Dose Admin Sodium Chloride 1,000 mls @ 999 mls/hr 03/05/22 03:00 03/05/22 03:00 Sod Chlor 0.9% 1000ml Bag IV 03/05/22 04:00 999 mls/hr .Q1H1M GRACE Administration Discontinued Medications Generic Name Dose Route Start Last Admin Trade Name Freq PRN Reason Stop Dose Admin Ondansetron HCl 4 mg 03/05/22 04:36 03/05/22 04:37 Ondansetron 4mg/2ml Vial IV 03/05/22 04:37 4 mg ONCE ONE Administration - US Data US Images: Pelvis ED US Reviewed: Yes: I have viewed radiologist's interpretation Preliminary Findings: Abnormal Pelvis (lt ovarian cyst ) Medical Decision Narrative: pt with pelvic pain with vag bleeding with neg preg test and has cyst on u/s Nausea/Vomiting/Diarrhea HPI - General Chief complaint: Abdominal Pain Stated complaint: Abdominal pain,nausea Time Seen by Provider: 03/05/22 05:08 Mode of Arrival: Ambulatory Source of Information: Patient, Spouse, Medical Record Limitations: No Limitations Description of Symptoms (Recalled from ER Triage Doc.
[2022-03-05 05:12] VITALS: BP 122/70; PULSE 71; RESP 14; TEMP 36.7; O2SAT 99
[2022-03-05 05:20] VITALS: BP 122/74; PULSE 81; RESP 16; TEMP 36.7; O2SAT 99
== END 2022-03-05 05:33 | disposition home or self-care (01) ==
PROVIDERS: Emergency Provider Emergency Medicine
DX: N83.202 Unspecified ovarian cyst, left side (principal); R10.2 Pelvic and perineal pain
CPT/HCPCS: 76817; 80053; 81001; 81025; 83690; 84702; 84703; 85025; 85651; 86140; 96360; 96365; 96375; J2405